=== PATIENT | male | born 1945 | race Caucasian/White ===

== ENCOUNTER → 2018-04-14 | Outpatient (CLI) | payer OTHER | LOC: CIMAGING 15:22 | PROVIDERS: ATTEND Family Medicine | DX: R22.1 Localized swelling, mass and lump, neck (principal) | CPT/HCPCS: 73000-PO ==

== ENCOUNTER → 2018-11-13 | Outpatient (CLI) | payer OTHER | LOC: CLAB 12:08 → CIMAGING 12:10 → EDSTATUS 12:10 | PROVIDERS: ATTEND Family Medicine | DX: M89.342 Hypertrophy of bone, left hand (principal); M19.142 Post-traumatic osteoarthritis, left hand; I10 Essential (primary) hypertension; I67.1 Cerebral aneurysm, nonruptured | CPT/HCPCS: 73120-PO ==